=== PATIENT | female | born 2000 | race Caucasian/White ===

== ENCOUNTER 2024-01-18 19:44 | Emergency (ER) | payer BC, SELFPAY ==
[2024-01-18 19:50] VITALS: BP 122/74
[2024-01-18 20:01] LABS: % Basophils 0.7 % (0-2); % Eosinophils 4.7 % (0-6); % Immature Granulocytes 0.3 % (0-0.5); % Lymphocytes 35.6 % (20.5-51.1); % Monocytes 5.9 % (1.7-9.3); % Neutrophils 52.8 % (42.2-75.2); Absolute Basophils 0.1 10^3/uL (0-0.2); Absolute Eosinophils 0.4 10^3/uL (0-0.7); Absolute Lymphocytes 2.7 10^3/uL (1.2-3.4); Absolute Monocytes 0.4 10^3/uL (0.1-0.6); Hematocrit 38.8 % (37.0-47.0); Hemoglobin 13.2 g/dL (12.0-16.0); Mean Corpuscular Hgb 28.4 pg (27.0-31.0); Mean Corpuscular Volume 83.4 fL (81.0-99.0); Mean Platelet Volume 10.1 fL (7.4-10.4); Nucleated Red Blood Cells % 0 %; Platelet Count 243 10^3/uL (130-400); Red Blood Cell Count 4.65 10^6/uL (4.20-5.40); Red Cell Dist. Width 12.6 % (11.5-14.5); White Blood Cell Count 7.5 10^3/uL (4.8-10.8)
[2024-01-18 20:15] LABS: HCG, Serum Qualitative Screen Negative
[2024-01-18 20:18] LABS: ALT (SGPT) 13 U/L (0-35); AST (SGOT) 26 U/L (14-36); Albumin 4.7 g/dl (3.5-5.0); Alkaline Phosphatase 50 U/L (38-126); Blood Urea Nitrogen 17 mg/dl (7-17); Carbon Dioxide 29 mmol/L (22-30); Chloride 104 mmol/L (98-107); Glucose 93 mg/dl (70-99); Lipase 81 U/L (23-300); Sodium 138 mmol/L (135-145); Total Bilirubin 0.5 mg/dl (0.2-1.3); Total Protein 7.5 g/dl (6.3-8.2); eGFR > 60.00
--- NOTE | 2024-01-18 23:48 | ED.GENMED ---
History of Present Illness
General
Chief Complaint: Abdominal Pain
Source: patient
Exam Limitations: none
Time Seen by Provider: 01/18/24 23:37
Nursing documentation reviewed up to this point in time: agreed with
Travel History
Have you had any contact with someone who has COVID-19?: No
Do you have any symptoms of coronavirus? Fever > 100 degrees, chills, cough, shortness of breath, sore throat, loss of taste or smell, muscle aches, or headache?: No
History of Present Illness
History of Present Illness:
23-year-old female presents emergency department complaining of right upper quadrant abdominal pain the past 2 weeks. She had diarrhea about 2 weeks ago it has lessened. She denies any bloody stool. She denies any dysuria urgency or frequency.
She feels like she gets full quicker lately.
Past History
Past History
ED Past Medical History: None
ED Past Surgical History: Other (Dental)
Social History
Tobacco: Non-smoker
Alcohol: None
Drug: None
Living: with family
Review of Systems
Review of Systems
Allergies reviewed?: Yes
All Other Systems: Not applicable
Constitutional: Reports no symptoms; Denies fever
EENT: Reports no symptoms
Respiratory: Reports no symptoms
Cardiac: Reports no symptoms
ABD/GI: Reports abdominal pain and diarrhea
: Reports no symptoms
Musculoskeletal: Reports no symptoms
Skin: Reports no symptoms
Neurological: Reports no symptoms
Endocrine: Reports no symptoms
Hematologic/Lymphatic: Reports no symptoms
Psychiatric: Reports no symptoms
Phy Exam
Physical Exam
Physical Exam:
Physical Exam
General: no apparent distress, not acutely ill
Neck: supple. no meningeal signs. normal posterior pharynx
Heart: s1/s2 regular rate and rhythm, no murmur. equal radial
pulses.
HEENT: Pupils equal round reactive to light, EOMI
Lungs: no acute respiratory distress. clear bilaterally
Abdomen: normal bowel sounds. Mild right upper quadrant tenderness, no rebound or guarding. No CVAT
Neuro: alert and oriented. no focal neurological deficits cranial nerves II through XII intact
Skin: no rash
Psychiatric: well kept. interactive and cooperative
Extremities: no edema. good distal pulses
Course
Orders/Labs/Results
Orders:
Orders
01/18/24 19:53
Test Result ONCE
01/18/24 19:57
CMP [Comprehensive Metabolic Panel] Urgent
Complete Blood Count/With Diff Urgent
HCG, Serum Qualitative Screen Urgent
Lipase Urgent
01/18/24 23:48
Pantoprazole [Protonix] 40 mg PO NOW STA
01/19/24 00:00
US Abdomen Complete/Upper Urgent
Reason For Exam: RUQ pain 2 weeks
01/18/24 19:57
01/18/24 19:57
Vital Signs
Initial and Last Documented VS:
Initial Vital Signs
Temp Pulse Resp BP Pulse Ox
97.5 F 72 22 122/74 97
01/18/24 19:50 01/18/24 19:50 01/18/24 19:50 01/18/24 19:50 01/18/24 19:50
Last Documented Vital Signs
Temp Pulse Resp BP Pulse Ox
97.5 F 72 22 122/74 97
01/18/24 19:50 01/18/24 19:50 01/18/24 19:50 01/18/24 19:50 01/19/24 00:30
MDM/Problems Addressed
Differential Diagnosis Includes:
Cholecystitis, gastroenteritis
MDM/Problems Addressed:
23-year-old female with right upper quadrant abdominal pain, likely gastritis, patient had recent gastrointestinal virus. Abdomen with no rebound or guarding. Ultrasound no acute findings. Stable for discharge.
*Radiology
Radiology exam reviewed: radiology read reviewed (Ultrasound abdomen no acute findings)
*Pulse Oximetry
Patient hypoxic: no
*EKG
Interpreted by ED Provider?: NA
*Elementary Education Teacher Interpretation
Rate: Elementary Education Teacher- N/A
*Critical Care Note
Total Time (30-74mins, 75-104mins- exclusive of procedures): Not Applicable
Patient Management
Social determinants of health affecting care: Living situation
Escalation/DeEscalation of care consider admission/obs:
Admit not indicated
ED Attending Note
-
Portions of this chart may have been created with voice recognition software.� Occasional wrong word or��sound alike� substitutions may have occurred due to the inherent limitations of voice recognition software.
Discharge Plan
Departure
Patient Disposition: Home (Routine Discharge)
Date of Disposition: 01/19/24
Time of Disposition: 01:32
Patient with high blood pressure during this ER visit?: Yes
Condition: Good
Discharge Problem:
Abdominal pain
Instructions: Abdominal Pain, BLOOD PRESSURE
Prescriptions:
New
pantoprazole [Protonix] 40 mg tablet,delayed release (DR/EC)
40 mg PO DAILY Qty: 30 0RF
No Action
acetaminophen 325 MG tablet
650 mg PO PRN PRN (Reason: fever)
ibuprofen 200 MG capsule
400 mg PO BID
amoxicillin [Amoxil] 875 MG tablet
875 mg PO Q12
Referrals:
Reyes Reed, DO [Family Provider] - Call in 1-3 days for appt
Interventions
Interventions:
*Risk Screen - Suicide Last Done: 01/18/24 19:50
*General Assessment Last Done: 01/18/24 23:00
*Neglect/Abuse Screening Last Done: 01/18/24 19:50
ED- Fall Risk Assessment Last Done: 01/18/24 23:00
DZ-Btdmna-Vgepxkpcjv Assessment Last Done: 01/18/24 23:00
Discharge Date and Time
Print Language: KOREAN
[2024-01-19] MEDS: PROTONIX 40 MG PO (00:18)
== END 2024-01-19 01:44 | disposition home or self-care (01) ==
LOC: EMR 19:44
PROVIDERS: Emergency Medicine; EMERGENCY PHYSICIAN Emergency Medicine; FAMILY PHYSICIAN Family Medicine
DX: R10.11 Right upper quadrant pain (principal); R19.7 Diarrhea, unspecified; R03.0 Elevated blood-pressure reading, without diagnosis of hypertension; Z86.16 Personal history of COVID-19
CPT/HCPCS: 99284; 76700; 80053; 83690; 84703; 85025

== ENCOUNTER 2024-05-26 07:07 | Emergency (ER) | payer BC, SELFPAY ==
[2024-05-26 07:17] VITALS: BP 116/73
[2024-05-26 08:00] LABS: HCG, Serum Qualitative Screen Negative
[2024-05-26 08:07] LABS: ALT (SGPT) 420 U/L (0-35); AST (SGOT) 454 U/L (14-36); Albumin 3.9 g/dl (3.5-5.0); Alkaline Phosphatase 336 U/L (38-126); Blood Urea Nitrogen 8 mg/dl (7-17); Calcium 9.3 mg/dl (8.4-10.2); Carbon Dioxide 24 mmol/L (22-30); Chloride 103 mmol/L (98-107); Glucose 140 mg/dl (70-99); Potassium 4.4 mmol/L (3.5-5.1); Sodium 139 mmol/L (135-145); Total Bilirubin 1.4 mg/dl (0.2-1.3); Total Protein 6.9 g/dl (6.3-8.2); eGFR > 60.00
[2024-05-26 08:22] LABS: Monotest Positive (Negative)
[2024-05-26 08:49] LABS: % Basophils 1.8 % (0-2); % Eosinophils 1.8 % (0-6); % Immature Granulocytes 0.1 % (0-0.5); % Lymphocytes 68.8 % (20.5-51.1); % Monocytes 4.5 % (1.7-9.3); Absolute Basophils 0.2 10^3/uL (0-0.2); Absolute Eosinophils 0.2 10^3/uL (0-0.7); Absolute Lymphocytes 6.2 10^3/uL (1.2-3.4); Absolute Monocytes 0.4 10^3/uL (0.1-0.6); Absolute Neutrophils 2.1 10^3/uL (1.4-6.5); Mean Corp Hgb Conc. 34.2 g/dL (33.0-37.0); Mean Corpuscular Hgb 28.2 pg (27.0-31.0); Mean Corpuscular Volume 82.4 fL (81.0-99.0); Mean Platelet Volume 10.8 fL (7.4-10.4); Nucleated Red Blood Cells % 0 %; Platelet Count 141 10^3/uL (130-400); Red Blood Cell Count 4.61 10^6/uL (4.20-5.40); Red Cell Dist. Width 13.4 % (11.5-14.5)
--- NOTE | 2024-05-26 09:05 | ED.GENMED ---
History of Present Illness
General
Chief Complaint: Fever
Time Seen by Provider: 05/26/24 08:43
History of Present Illness
History of Present Illness:
Patient is a 23-year-old woman presenting to the emergency department with fevers. Patient states that about 9 days ago she developed fevers and a tender lymph node. About 6 days ago she started although cough congestion. She got tested positive
for COVID and was also started on a Z-Zackary. She states that her cough has been getting better. No chest pain or difficulty breathing. Her muscles do feel sore from all the coughing. She denies any leg swelling or hemoptysis. She did travel to
[place] about 1.5 weeks ago. She denies any pleuritic pain. She has been having decreased p.o. secondary to feeling unwell. She is presenting as she is concerned about the fevers. She does state that 3 days ago she was fever free however
had a recurrence of the fever 2 days ago. She did have a low-grade fever this morning when she took Motrin for.
Past History
Past History
ED Past Medical History: None
ED Past Surgical History: Other (Dental)
Social History
Tobacco: Non-smoker
Alcohol: None
Drug: None
Living: with family
Phy Exam
Physical Exam
Physical Exam:
GENERAL: in no acute distress
HEENT: normocephalic, extraocular movements intact, moist oral mucosa
NECK: normal inspection
RESPIRATORY: no respiratory distress, clear to auscultation bilaterally
CARDIOVASCULAR: Regular rhythm, during my evaluation heart rate in the 90s
ABDOMEN/: soft, non-distended, non-tender to palpation, no rebound or guarding
EXTREMITIES: non-tender, no edema/swelling
NEUROLOGIC: awake and alert, moves all extremities
SKIN: warm
Course
Orders/Labs/Results
Orders:
Orders
05/26/24 07:20
Test Result ONCE
05/26/24 07:25
Complete Blood Count/With Diff Urgent
Comprehensive Metabolic Panel Urgent
HCG, Serum Qualitative Screen Urgent
Monotest Urgent
Abnormal Lab Results
05/26/24
07:25
MPV 10.8 H fL
(7.4-10.4)
Absolute Lymphs (auto) 6.2 H 10^3/uL
(1.2-3.4)
Neutrophils % 23.0 L %
(42.2-75.2)
Lymphocytes % 68.8 H %
(20.5-51.1)
Glucose 140 H mg/dl
(70-99)
Total Bilirubin 1.4 H mg/dl
(0.2-1.3)
AST 454 H U/L
(14-36)
ALT 420 H U/L
(0-35)
Alkaline Phosphatase 336 H U/L
(38-126)
Monoscreen Positive A
(Negative)
05/26/24 07:25
05/26/24 07:25
Vital Signs
Initial and Last Documented VS:
Initial Vital Signs
Temp Pulse Resp BP Pulse Ox
99.0 F 113 20 116/73 97
05/26/24 07:17 05/26/24 07:17 05/26/24 07:17 05/26/24 07:17 05/26/24 07:17
Last Documented Vital Signs
Temp Pulse Resp BP Pulse Ox
99.0 F 113 20 116/73 97
05/26/24 07:17 05/26/24 07:17 05/26/24 07:17 05/26/24 07:17 05/26/24 07:17
MDM/Problems Addressed
Differential Diagnosis Includes:
Patient is a 23-year-old woman presenting to the emergency department with fevers cough congestion. Initial vitals are notable for being afebrile. Exam does show clear breath sounds bilaterally. Abdomen is benign. Differential consists of mono
versus superimposed pneumonia versus electrolyte derangement. She was initially tachycardic though during my evaluation that did improve to the 90s. Consider PE given that she did have COVID however she otherwise has no symptoms to suggest it.
Blood work obtained prior to evaluation shows a normal white count. She does have elevated LFT and did test positive for mono. LFTs are likely in relation to the mono. She has not been taking Tylenol she has been taking Motrin for the fevers. I
did offer chest x-ray however patient and patient's mother are in agreement that they will hold off as the cough has been better and she is not having shortness of breath. Patient will follow-up with PCP to have repeat LFTs in about a week.
Patient was educated on no contact sports secondary to the enlarged spleen. All questions answered. Patient stable for discharge at this time
*Critical Care Note
Total Time (30-74mins, 75-104mins- exclusive of procedures): Not Applicable
ED Attending Note
-
Portions of this chart may have been created with voice recognition software.� Occasional wrong word or��sound alike� substitutions may have occurred due to the inherent limitations of voice recognition software.
Discharge Plan
Departure
Prescriptions:
No Action
acetaminophen 325 MG tablet
650 mg PO PRN PRN (Reason: fever)
ibuprofen 200 MG capsule
400 mg PO BID
amoxicillin [Amoxil] 875 MG tablet
875 mg PO Q12
pantoprazole [Protonix] 40 mg tablet,delayed release (DR/EC)
40 mg PO DAILY Qty: 30 0RF
Discharge Date and Time
Print Language: UKRAINIAN
[2024-05-26 10:00] VITALS: BP 109/79; BMI 25.1
== END 2024-05-26 10:05 | disposition home or self-care (01) ==
LOC: EMR 07:07
PROVIDERS: Student in an Organized Health Care Education/Training Program; EMERGENCY PHYSICIAN Student in an Organized Health Care Education/Training Program; FAMILY PHYSICIAN Physician Assistant Medical
DX: R50.9 Fever, unspecified (principal); R05.9 Cough, unspecified; U07.1 COVID-19; B27.90 Infectious mononucleosis, unspecified without complication
CPT/HCPCS: 99283; 80053; 84703; 85025; 86308

== ENCOUNTER 2024-10-15 10:45 | Emergency (ER) | payer BC, SELFPAY ==
[2024-10-15 10:58] VITALS: BP 113/81
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
[2024-10-15 13:05] VITALS: BMI 25.6
[2024-10-15 13:06] VITALS: BP 117/74
[2024-10-15] MEDS: TYLENOL 1000 MG PO (13:10)
[2024-10-15 14:55] VITALS: BP 114/76
== END 2024-10-15 15:04 | disposition home or self-care (01) ==
LOC: EMR 10:45
PROVIDERS: EMERGENCY PHYSICIAN Student in an Organized Health Care Education/Training Program; FAMILY PHYSICIAN Family Medicine
DX: M79.18 Myalgia, other site (principal); M54.50 Low back pain, unspecified; R07.89 Other chest pain; K59.00 Constipation, unspecified; R14.0 Abdominal distension (gaseous); W03.XXXA Other fall on same level due to collision with another person, initial encounter; Y93.23 Activity, snow (alpine) (downhill) skiing, snowboarding, sledding, tobogganing and snow tubing
CPT/HCPCS: 99283; 71101

== ENCOUNTER → 2025-01-12 10:12 | Outpatient (REF) | payer BC, SELFPAY | LOC: RAD 10:12 | PROVIDERS: ATTENDING PHYSICIAN Physician Assistant Medical; FAMILY PHYSICIAN Family Medicine | DX: N92.0 Excessive and frequent menstruation with regular cycle (principal); N94.6 Dysmenorrhea, unspecified | CPT/HCPCS: 76856 ==